=== PATIENT | male | born 1990 | race Asian ===

== ENCOUNTER 2023-06-09 09:19 | Emergency (ER) | payer MEDICAID ==
[~2023-06-09] VITALS: Ht 182.9 cm; Wt 106.4 kg
[2023-06-09 09:28] VITALS: TEMP 98
[2023-06-09] MEDS ORDERED: LORazepam 1 MG TABLET PO ONE (10:45)
[2023-06-09 14:02] VITALS: BP 132/76; PULSE 74; RESP 22
== END 2023-06-09 14:15 | disposition home or self-care (01) ==
LOC: EMS 09:21
DX: F41.9 Anxiety disorder, unspecified (principal)
CPT/HCPCS: 93005; 99283